=== PATIENT | female | born 1965 | race Caucasian/White ===

== ENCOUNTER 2025-08-19 12:59 | Outpatient (RCR) | payer MEDICAID, SELFPAY ==
--- NOTE | 2025-08-19 13:44 | PTNOTE_ITS ---
PT OP Initial Eval Patient Information Outpatient Physical Therapy Treatment Date: 08/19/25 Visit Reasons: LOW BACK PAIN Medical Diagnosis: M54.50 Treatment Dx #1: Back Pain Treatment Dx #2: Difficulty Walking Start of Care: 08/19/25 Date of Onset: 5 years ago Smoking Status Smoking Status: Current every day smoker Cessation Counseling Provided: JEFFRY was advised that quitting smoking is the single most important factor to protect the health of themselves and their family. Discussed the benefits of quitting smoking with patient. Encouraged patient to quit smoking and provided Cessation assistance materials and resources. Tobacco Use: Cigarette Years smoked: 20 Are you interested in quitting?: No Would you like additional Smoking Cessation Counseling?: No Initial Assessment Subjective: Pt is a 59 y/o female reports of difficulty walking and ADLs limitation due to back pain, CHF, COPD, and MS. Pt mentioned she's had trouble with walking many years ago and is getting worse due to increase shortness of breath. Pt will like a power wheelchair to be more indepedent with ADLs and community outtings. Objective: BLE AROM: all motions are WFL BLE MMTs: grossly 3+/5 L/S AROM: all motions are 50% towards end with pain Left Shoulder AROM: all motions are WFL Left Shoulder MMTs: grossly 3+/5 Right Shoulder AROM: all motions are grossly 50% towards end Right Shoulder MMTs: grossly 3-/5 Assessment: Pt demonstrate decrease mobility, strength, and decondition leading to difficulty with ADLs and ambulation. Pt will benefit from a power w/c to improve overall mobility with ADLs Short Term and Timber Deadener Goals 1) Eval and D/C 2) Recommend power w/d 3) Follow up with MD CLIFFORD Treatment Plan Eval and D/C Frequency and Duration: 1x Certification Dates: 08/19/25 to 11/19/25 Procedure Charges OP PT Eval Mod Complex 30 minutes: Yes
== END 2025-09-14 23:59 | disposition home or self-care (01) ==
LOC: CPTX 12:59
PROVIDERS: PCP Nurse Practitioner Family; Referring Provider Nurse Practitioner Family; Visit Provider Nurse Practitioner Family
DX: M54.50 Low back pain, unspecified (principal); Z71.6 Tobacco abuse counseling; F17.210 Nicotine dependence, cigarettes, uncomplicated; R26.2 Difficulty in walking, not elsewhere classified; I50.9 Heart failure, unspecified; J44.9 Chronic obstructive pulmonary disease, unspecified; G35.D Multiple sclerosis, unspecified
CPT/HCPCS: 97162